=== PATIENT | male | born 1945 | race Caucasian/White ===

== ENCOUNTER → 2017-10-07 12:38 | Outpatient (REF) | payer MEDICARE, MEDICAID, SELFPAY ==
[2017-10-07 20:22] LABS: Absolute Basophil Count 0.01 k/cumm (0.0-0.2); Absolute Eosinophil Count 0.08 k/cumm (0.0-0.7); Absolute Lymphocyte Count 2.05 k/cumm (1.2-3.4); Absolute Neutrophil Count 1.09 k/cumm (1.2-6.7); Basophils % 0.3; HCT 41.8 % (40.0-50.0); HGB 13.9 g/dL (13.5-17.5); Lymphocytes % 52.2; Mean Corp. HGB Concentration 33.3 g/dL (32.0-36.0); Mean Corpuscular Hemoglobin 30.2 pg (27.0-33.0); Mean Corpuscular Volume 90.9 fL (80-95); Mean Platelet Volume 11.3 fL (8.0-11.0); Monocytes % 17.8; Neutrophils % 27.7; Platelet Count 150 x1000/uL (130-400); RBC Distribution Width 13.5 % (11.8-14.1); White Blood Cell Count 3.93 k/cumm (4.4-10.8)
[2017-10-07 20:33] LABS: ALT 16 U/L (12-78); AST 16 U/L (15-37); Albumin 3.5 g/dL (3.4-5.0); Alkaline Phosphatase 88 U/L (46-116); BUN 18 mg/dL (7-18); Bilirubin, Total 0.4 mg/dL (0.2-1.0); CREATININE 1.81 mg/dL (0.70-1.30); Chloride 104 mmol/L (98-107); Estimated GFR 37.04 (mL/min/1.73m2); Glucose 91 mg/dL (70-100); Potassium 4.6 mmol/L (3.5-5.1); Sodium 138 mmol/L (136-145); Total Protein 7.6 g/dL (6.4-8.2)
[2017-10-07 20:52] LABS: Diff Comment Diff Reviewed; RBC Morphology Normal
== END ==
LOC: NCHCN 12:38
PROVIDERS: Visit Provider Nurse Practitioner
DX: M06.9 Rheumatoid arthritis, unspecified (principal); Z86.2 Personal history of diseases of the blood and blood-forming organs and certain disorders involving the immune mechanism
CPT/HCPCS: 80053; 85025

== ENCOUNTER 2018-01-07 14:30 | Outpatient (CLI) | payer MEDICARE, MEDICAID, SELFPAY ==
[2018-01-07 15:13] LABS: HCT 42.3 % (40.0-50.0); HGB 14.4 g/dL (13.5-17.5); Mean Corpuscular Hemoglobin 30.8 pg (27.0-33.0); Mean Corpuscular Volume 90.4 fL (80-95); Mean Platelet Volume 10.2 fL (8.0-11.0); Platelet Count 156 x1000/uL (130-400); RBC 4.68 m/cumm (4.50-6.00); RBC Distribution Width 15.1 % (11.8-14.1); White Blood Cell Count 3.82 k/cumm (4.4-10.8)
[2018-01-07 16:19] LABS: ALT 27 U/L (12-78); AST 25 U/L (15-37); Albumin 3.6 g/dL (3.4-5.0); Alkaline Phosphatase 81 U/L (46-116); Anion Gap 8.3 mmol/L (3-11); BUN 24 mg/dL (7-18); Bilirubin, Total 0.3 mg/dL (0.2-1.0); CO2 28.7 mmol/L (21.0-32.0); CREATININE 1.83 mg/dL (0.70-1.30); Calcium 8.9 mg/dL (8.5-10.1); Chloride 103 mmol/L (98-107); Estimated GFR 36.57 (mL/min/1.73m2); Glucose 86 mg/dL (70-100); Potassium 4.6 mmol/L (3.5-5.1); Sodium 140 mmol/L (136-145); Total Protein 7.6 g/dL (6.4-8.2)
== END 2018-01-07 14:50 ==
PROVIDERS: Visit Provider Internal Medicine Rheumatology
DX: M05.79 Rheumatoid arthritis with rheumatoid factor of multiple sites without organ or systems involvement (principal); Z79.899 Other long term (current) drug therapy
CPT/HCPCS: 36415; 80053; 85027

== ENCOUNTER 2018-01-31 15:00 | Outpatient (CLI) | payer MEDICARE, MEDICAID, SELFPAY ==
[2018-01-31 16:05] LABS: HCT 42.8 % (40.0-50.0); HGB 14.5 g/dL (13.5-17.5); Mean Corp. HGB Concentration 33.9 g/dL (32.0-36.0); Mean Corpuscular Hemoglobin 30.7 pg (27.0-33.0); Mean Corpuscular Volume 90.5 fL (80-95); Mean Platelet Volume 10.5 fL (8.0-11.0); Platelet Count 144 x1000/uL (130-400); RBC 4.73 m/cumm (4.50-6.00); RBC Distribution Width 14.9 % (11.8-14.1); White Blood Cell Count 3.83 k/cumm (4.4-10.8)
[2018-01-31 16:49] LABS: ALT 22 U/L (12-78); AST 21 U/L (15-37); Albumin 3.4 g/dL (3.4-5.0); Alkaline Phosphatase 86 U/L (46-116); Anion Gap 8.9 mmol/L (3-11); BUN 22 mg/dL (7-18); Bilirubin, Total 0.3 mg/dL (0.2-1.0); C-Reactive Protein 0.21 mg/dL (0.0-0.3); CO2 30.1 mmol/L (21.0-32.0); CREATININE 1.81 mg/dL (0.70-1.30); Calcium 9.3 mg/dL (8.5-10.1); Chloride 103 mmol/L (98-107); Estimated GFR 37.04 (mL/min/1.73m2); Glucose 112 mg/dL (70-100); Potassium 4.7 mmol/L (3.5-5.1); Sodium 142 mmol/L (136-145); Total Protein 7.4 g/dL (6.4-8.2)
[2018-01-31 17:34] LABS: ESR 36 MM/HR (1-20)
== END 2018-01-31 15:20 ==
PROVIDERS: Visit Provider Internal Medicine Rheumatology
DX: M05.79 Rheumatoid arthritis with rheumatoid factor of multiple sites without organ or systems involvement (principal); Z79.899 Other long term (current) drug therapy
CPT/HCPCS: 36415; 80053; 85027; 85652; 86140

== ENCOUNTER 2018-05-02 16:01 | Outpatient (REF) | payer MEDICARE, MEDICAID, SELFPAY ==
[2018-05-02 22:00] LABS: Anion Gap 9.2 mmol/L (3-11); BUN 51 mg/dL (7-18); CO2 21.8 mmol/L (21.0-32.0); CREATININE 2.55 mg/dL (0.70-1.30); Calcium 8.8 mg/dL (8.5-10.1); Chloride 104 mmol/L (98-107); Estimated GFR 24.87 (mL/min/1.73m2); Glucose 92 mg/dL (70-100); Potassium 5.2 mmol/L (3.5-5.1); Sodium 135 mmol/L (136-145)
== END 2018-05-02 16:21 ==
LOC: NCHCN 16:01
PROVIDERS: PCP Nurse Practitioner; Visit Provider Nurse Practitioner
DX: I10 Essential (primary) hypertension (principal)
CPT/HCPCS: 80048

== ENCOUNTER 2018-05-09 13:02 | Outpatient (REF) | payer MEDICARE, MEDICAID, SELFPAY ==
[2018-05-09 21:07] LABS: Anion Gap 11.2 mmol/L (3-11); BUN 51 mg/dL (7-18); CO2 21.8 mmol/L (21.0-32.0); CREATININE 2.33 mg/dL (0.70-1.30); Calcium 9.1 mg/dL (8.5-10.1); Chloride 106 mmol/L (98-107); Glucose 134 mg/dL (70-100); Potassium 5.4 mmol/L (3.5-5.1); Sodium 139 mmol/L (136-145)
== END 2018-05-09 13:22 ==
LOC: NCHCN 13:02
PROVIDERS: PCP Nurse Practitioner; Visit Provider Nurse Practitioner
DX: E87.5 Hyperkalemia (principal); I10 Essential (primary) hypertension; N28.9 Disorder of kidney and ureter, unspecified
CPT/HCPCS: 80048

== ENCOUNTER 2018-06-07 13:46 | Outpatient (REF) | payer MEDICARE, MEDICAID, SELFPAY ==
[2018-06-07 21:29] LABS: Abs Immature Grans 0.01 k/cumm (0.0-0.09); HCT 39.1 % (40.0-50.0); HGB 12.7 g/dL (13.5-17.5); Mean Corp. HGB Concentration 32.5 g/dL (32.0-36.0); Mean Corpuscular Hemoglobin 30.6 pg (27.0-33.0); Mean Corpuscular Volume 94.2 fL (80-95); Mean Platelet Volume 11.3 fL (8.0-11.0); Platelet Count 166 x1000/uL (130-400); RBC 4.15 m/cumm (4.50-6.00); RBC Distribution Width 15.1 % (11.8-14.1); White Blood Cell Count 3.69 k/cumm (4.4-10.8)
[2018-06-07 21:45] LABS: Anion Gap 9.6 mmol/L (3-11); BUN 26 mg/dL (7-18); CO2 25.4 mmol/L (21.0-32.0); CREATININE 1.95 mg/dL (0.70-1.30); Chloride 104 mmol/L (98-107); Estimated GFR 33.89 (mL/min/1.73m2); Glucose 93 mg/dL (70-100); Magnesium 1.5 mg/dL (1.8-2.4); Potassium 5.1 mmol/L (3.5-5.1); Sodium 139 mmol/L (136-145)
[2018-06-07 21:49] LABS: Absolute Neutrophil Count 1.51 k/cumm (1.2-6.7)
[2018-06-07 21:50] LABS: Absolute Basophil Count 0.04 k/cumm (0.0-0.2); Absolute Lymphocyte Count 1.48 k/cumm (1.2-3.4); Absolute Monocyte Count 0.66 k/cumm (0.11-0.7); Diff Comment Manual Differential; RBC Morphology Normal
[2018-06-08 14:10] LABS: Bilirubin Negative (Negative); Blood Trace-intact (Negative); Clarity Sl Cloudy; Glucose Negative (Negative); Ketones Negative (Negative); Leukocyte Esterase Moderate (Negative); Nitrite Negative (Negative); Urobilinogen 0.2 EU/dL (Up TO 0.2)
[2018-06-08 14:13] LABS: C & S Indicated? Yes; WBC >50 HPF (0-5)
[2018-06-09 09:42] LABS: HBs Antibody, Quant <3.1 mIU/mL; Hepatitis B Surface Ab Negative
[2018-06-09 10:37] LABS: HIV-1/2 Ag & Ab Screen Negative (NEGAT); Hep B Core Antibody Negative (NEGAT)
[2018-06-09 11:08] LABS: Hepatitis A IgM Ab Negative (Negative)
== END 2018-06-07 14:06 ==
LOC: NCHCN 13:46
PROVIDERS: PCP Nurse Practitioner Family; Visit Provider Nurse Practitioner Family
DX: I10 Essential (primary) hypertension (principal); R33.9 Retention of urine, unspecified; R94.4 Abnormal results of kidney function studies; E87.5 Hyperkalemia; N28.1 Cyst of kidney, acquired; D72.819 Decreased white blood cell count, unspecified; Z11.59 Encounter for screening for other viral diseases; Z11.4 Encounter for screening for human immunodeficiency virus [HIV]; N28.9 Disorder of kidney and ureter, unspecified
CPT/HCPCS: 80048; 86704; 86706; 87077; 87389; 81003; 81015; 83735; 85025; 86709; 87086; 87186

== ENCOUNTER 2018-09-07 14:16 | Outpatient (REF) | payer MEDICARE, MEDICAID, SELFPAY ==
[2018-09-07 22:53] LABS: Abs Immature Grans 0.03 k/cumm (0.0-0.09); Absolute Eosinophil Count 0.01 k/cumm (0.0-0.7); Absolute Lymphocyte Count 1.03 k/cumm (1.2-3.4); Absolute Monocyte Count 0.46 k/cumm (0.11-0.7); Absolute Neutrophil Count 5.07 k/cumm (1.2-6.7); Eosinophils % 0.2; HCT 40.6 % (40.0-50.0); HGB 13.5 g/dL (13.5-17.5); Immature Grans % 0.5; Lymphocytes % 15.6; Mean Corp. HGB Concentration 33.3 g/dL (32.0-36.0); Mean Corpuscular Volume 90.2 fL (80-95); Neutrophils % 76.7; Platelet Count 226 x1000/uL (130-400); RBC Distribution Width 13.6 % (11.8-14.1)
[2018-09-07 22:56] LABS: Anion Gap 11.2 mmol/L (3-11); BUN 54 mg/dL (7-18); CO2 23.8 mmol/L (21.0-32.0); CREATININE 2.15 mg/dL (0.70-1.30); Calcium 9.8 mg/dL (8.5-10.1); Chloride 105 mmol/L (98-107); Estimated GFR 30.28 (mL/min/1.73m2); Glucose 112 mg/dL (70-100); Magnesium 1.8 mg/dL (1.8-2.4); Potassium 5.7 mmol/L (3.5-5.1); Sodium 140 mmol/L (136-145)
== END 2018-09-07 14:36 ==
LOC: NCHCN 14:16
PROVIDERS: PCP Nurse Practitioner Family; Visit Provider Nurse Practitioner Family
DX: E87.5 Hyperkalemia (principal); R94.4 Abnormal results of kidney function studies; I10 Essential (primary) hypertension; R33.9 Retention of urine, unspecified; E87.1 Hypo-osmolality and hyponatremia; D72.819 Decreased white blood cell count, unspecified; N28.9 Disorder of kidney and ureter, unspecified
CPT/HCPCS: 80048; 83735; 85025

== ENCOUNTER 2019-01-25 09:21 | Outpatient (REF) | payer MEDICARE, MEDICAID, SELFPAY ==
[2019-01-25 19:21] LABS: HCT 38.2 % (40.0-50.0); HGB 12.9 g/dL (13.5-17.5); Mean Corp. HGB Concentration 33.8 g/dL (32.0-36.0); Mean Corpuscular Hemoglobin 30.5 pg (27.0-33.0); Mean Corpuscular Volume 90.3 fL (80-95); Mean Platelet Volume 10.6 fL (8.0-11.0); Platelet Count 193 x1000/uL (130-400); RBC 4.23 m/cumm (4.50-6.00); White Blood Cell Count 3.83 k/cumm (4.4-10.8)
[2019-01-25 19:33] LABS: ALT 14 U/L (16-63); AST 13 U/L (15-37); Anion Gap 9.1 mmol/L (3-11); BUN 28 mg/dL (7-18); CO2 25.9 mmol/L (21.0-32.0); CREATININE 2.18 mg/dL (0.70-1.30); Calcium 9.3 mg/dL (8.5-10.1); Calculated LDL 58 mg/dL; Chloride 104 mmol/L (98-107); Cholesterol 121 mg/dL (<200); Glucose 87 mg/dL (74-106); HDL Cholesterol 31 mg/dL (40-60); Potassium 4.9 mmol/L (3.5-5.1); Sodium 139 mmol/L (136-145); Triglyceride 162 mg/dL (<150)
== END 2019-01-25 09:41 ==
LOC: NCHCN 09:21
PROVIDERS: PCP Nurse Practitioner Family; Visit Provider Nurse Practitioner Family
DX: R94.4 Abnormal results of kidney function studies (principal); I10 Essential (primary) hypertension; D75.89 Other specified diseases of blood and blood-forming organs
CPT/HCPCS: 80048; 80061; 85027; 84450; 84460